=== PATIENT | male | born 1955 | race Caucasian/White ===

== ENCOUNTER 2023-03-10 05:55 | Day surgery (SDC) | payer MEDICARE, OTHER ==
[2023-03-04 10:55] VITALS: BP 163/85
[~2023-03-10] VITALS: Ht 177.8 cm; Wt 84.1 kg
[2023-03-10] VITALS (9 sets, daily range): BP systolic 124–165; BP diastolic 63–83
[~2023-03-10 05:55] MED LIST: BAYER CHEWABLE81 MG PO; FLOMAX0.4 MG PO; JANUVIA100 MG PO; MACRODANTIN100 MG PO; PRAVASTATIN SOD20 MG PO; ZESTRIL40 MG PO
--- NOTE | 2023-03-10 07:23 | NUR ---
LE 0715 UP TO BATHROOM. VOIDED 5ML CLOUDY YELLOW URINE. SAMPLE GIVEN TO LAB. 1500 LR BOLUS INFUSED AND ANESTHESIA AWARE.
--- NOTE | 2023-03-10 07:26 | NUR ---
DS ROUNDS. NO VISIT. SURGICAL STAFF IN WITH PT. PROVIDED PRAYER.
[2023-03-10 07:32] LABS: BILIRUBIN, URINE NEGATIVE (negative); BLOOD/HGB, URINE TRACE-I (Negative); KETONE, URINE NEGATIVE (Negative); LEUK ESTERASE, URINE MODERATE (negative); NITRITE, URINE NEGATIVE (negative)
[2023-03-10 07:37] LABS: BACTERIA, URINE NONE SEEN /hpf (negative); CASTS, URINE NONE SEEN \\lpf; COLLECTION TYPE, URINE CLEAN CATCH; CRYSTALS, URINE NONE SEEN (0-1+); EPITHELIAL CELLS, URINE 0 /lpf (0-1+); REFLEX CULTURE, URINE No (No)
--- NOTE | 2023-03-10 12:01 | NUR ---
PATIENT ARRIVED TO MED SURG, ROOM 115 VIA BED, AT 1145. PATIENT IS SLEEPING SOUNDLY WITH REGULAR RESPIRATIONS AND O2 SATS OF 93%. CBI TURNED OFF UPON PATIENT ARRIVAL AND URINE IS CURRENTLY A PALE YELLOW AND NO CLOTS. BED ALARM IS ON, CALL LIGHT WITHIN REACH. IVF INFUSING LR @ 75 TO RIGHT ARM IV. NEXT VITALS AT 1240.
--- NOTE | 2023-03-10 12:17 | NUR ---
03/10/23 1217 Nicol De Leon 1030 PT TO PACU FROM OR PER BED. ORAL AIRWAY IN PLACE WITH MASK AND O2 AT 10L. CBI INFUSING PER ORDER. URINE CLEAR WITH SLIGHT PINK TINGE. NEWMAN CATHETER IN PLACE. 1035 DR RAMOS AT BEDSIDE. STATES PT HAD INDICATION OF CHRONIC INFLAMMATION OF THE BLADDER AND URETHRA. 1045 ORAL AIRWAY DC'D. 1047 O2 DC'D. PT STIRRING. 1100 PT C/O PAIN TO PENIS 8/10 AND PT C/O "NEED TO PEE". INSTRUCTED PT THAT HE HAS A NEWMAN CATHETER IN PLACE AND THAT IT IS COMMON TO HAVE IRRITIATION AND FEEL THE NEED TO PEE, AND FOR IT TO CAUSE SOME IRRITATION. TOOLROOM KEEPER NOTIFIED OF PT'S PAIN. 1105 TYLENOL IV 1 GRAM GIVEN PER ORDER FROM TOOLROOM KEEPER. PT ALSO C/O L INTERMITTENT SHOULDER PAIN OCCURING WHEN HE LIFTS HIS ARM. 1115 PT DOZING 1123 PT C/O PAIN TO PENIS 7/10, FETANYL GIVEN PER ORDER. 1130 PT RESTING COMFORTABLY AT THIS TIME. RESPIRATIONS EVEN AND UNLABORED. CBI RUNNING PER ORDER, AND NEWMAN CATHETER INTACT. 1144 PT TRANSFERRED TO MS FLOOR PER BED. BED PLUGGED IN ON ARRIVAL. NO COMPLAINTS AT THIS TIME, PT RESTING COMFORTABLY. REPORT GIVEN TO GARTH MURRELL.
--- NOTE | 2023-03-10 13:09 | NUR ---
PATIENT IS SITTING UP TO EAT LUNCH. WARM PACK TO LEFT SHOULDER, HE INDICATES THAT HE HAS CHRONIC SHOULDER PAIN. PATIENT IS OTHERWISE COMFORTABLE. URINE REMAINS CLEAR, LIGHT YELLOW AND CBI HAS REMAINED TURNED OFF.
[2023-03-10] MEDS ORDERED: LEVOFLOXACIN500 MG PO (13:32)
[2023-03-10] MEDS ORDERED: OXYCODONE HCL5 MG PO (13:32)
[2023-03-10] MEDS ORDERED: PYRIDIUM200 MG PO (13:34)
--- NOTE | 2023-03-10 13:47 | NUR ---
THIRD POST OP VITALS COMPLETE. PATIENT IS 99% ON ROOM AIR, IS AWAKE AND ATE 100% OF HIS LUNCH. CBI REMAINS OFF, URINE IS PALE YELLOW WITH A SLIGHT TINGE OF PINK. PATIENT IS SITTING UP TO WATCH TV. LEFT SHOULDER IS STILL UNCOMFORTABLE 3/10 AND 6/10 WITH MOVEMENT.
--- NOTE | 2023-03-10 14:39 | NUR ---
POST UP VITALS COMPLETE. CBI REMAINS OFF AND URINE IS A PALE PINK. PATIENT REMAINS COMFORTABLE AND IS WATCHING TV.
--- NOTE | 2023-03-10 16:00 | NUR ---
CALL LIGHT ANSWERED. PT REQUESTED SCDS TO BE REMOVED. EXPLAINED THE IMPORTANCE OF SCDS AFTER SURGERY. PT STATED, "IT IS NOT WORKING CORRECTLY." NEW MACHINE AND LEG STOCKINGS APPLIED. PT VERBALIZED IT IS WORKING WELL NOW. NO OTHER ASSISTANCE NEEDED AT THIS TIME.
--- NOTE | 2023-03-10 16:25 | NUR ---
PATIENT IS FEELING BETTER, A LITTLE BORED WITH BEING IN BED. URINE IS VERY LIGHT PINK.
--- NOTE | 2023-03-10 17:04 | NUR ---
PATIENT GIVEN 5 UNITS OF INSULIN TO RIGHT ARM FOR BG OF 157.
--- NOTE | 2023-03-10 17:50 | NUR ---
MED REC COMPLETE
--- NOTE | 2023-03-10 18:04 | NUR ---
PATIENT SITTING UP IN BED WATCHING TV. VITALS AND I&O'S CHARTED. CALL LIGHT IN REACH. NO FURTHER NEEDS AT THIS TIME.
--- NOTE | 2023-03-10 20:11 | NUR ---
Pt irritaed, loud, angry over kitchen being closed and he is unable to order. and he was told that he could order food anytime he wanted to order. wanted icecream and chocolate, instructed that he could not have it as he is on a diabetic diet. got very loud and angry. "You can not tell me what to do with my diabetes, I know what to do". "I want my blood sugars taken, they are high," instructed that I was on my caro to do a 2000 blood sugar and i would return as he is to get BS at 2100, but I will go and do my other pt first and then come back. Not receptive to instructions. Upset over RN assessing CBI/f/c, noted some pinkish colored urine in tubing and tried to open up the CBI drainage. got very upset, "What are you doing, my other nurse turned off, why are you turning it on". it was explained to him, not receptive. very angry, loud, not receptive to teaching/instructions. Charge nurse notified.
--- NOTE | 2023-03-10 20:30 | NUR ---
NOTIFIED BY PT'S PRIMARY RN THAT PT IS UPSET REGARDING DIET AND MEDICATION. PERFORATOR LOADER TO ROOM. PT INQUIRING ABOUT INSULIN, PAIN MEDICATION, WHEN THE MD WILL SEE HIM, ETC. PT RAISING HIS VOICE, WAVING HIS ARMS. PERFORATOR LOADER ATTEMPTS EDUCATION REGARDING DIET, ACCUCHECK, INSULIN, AND PAIN MEDICATION. PT STATES THAT HE JUST WANTS TO LEAVE, REACHING TO TAKE IV OUT. PERFORATOR LOADER ENCOURAGED PT TO LEAVE IV. PERFORATOR LOADER INFORMS PT MD WILL BE CALLED TO SEE WHAT MD RECOMMENDS. PT STATES AGREEMENT. COTTON PICKING MACHINE OPERATOR ALSO NOTIFIED. MD NOTIFIED, NO NEW ORDERS RECEIVED.
--- NOTE | 2023-03-10 20:40 | NUR ---
POUNCING MACHINE OPERATOR TO ROOM, INFORMS PT THAT MD WOULD LIKE HIM TO STAY AND RECEIVE MORNING MEDCIATION, AND THAT SHE WOULD LIKE TO SEE HIM IN THE MORNING. PT RAISES HIS VOICE AGAIN STATING "YOU TOLD ME I COULD TALK TO MY DOCTOR AND YOU ARE A LIAR!" PT INFORMED THAT POUNCING MACHINE OPERATOR BROUGHT INSULIN AND PAIN MEDICATION. PT AGREEABLE TO TAKE MEDICATIONS. PT BECOMES APOLOGETIC, STATES THAT HE IS JUST ANGRY BECAUSE HIS BLOOD SUGAR IS ELEVATED. PT REQUESTS ANOTHER ACCUCHECK, PERFORMED. PT STATES HE WOULD LIKE ANOTHER ACCUCHECK IN 30 MINS, POUNCING MACHINE OPERATOR AGREES. PT WOULD KIRSTIN TO SHAVE HIS FACE. ALL SUPPLIES TO SHAVE FACE, PROVIDED. PT DENIES FURTHER NEEDS AT THIS TIME. CRAYON GRADER REMAINS IN ROOM.
--- NOTE | 2023-03-10 20:54 | NUR ---
PT. VITALS AND I/OS CHARTED ACCORDINGLY. ROOM TIDIED. FRESH WATER PROVIDED, CALL LIGHT LEFT WITHIN REACH. NO OTHER NEEDS AT THIS TIME.
--- NOTE | 2023-03-10 21:30 | NUR ---
PATIENT STATED "IM HUNGRY, I NEED SOMETHING TO EAT". THIS TRAINING PROGRAM MANAGER TOLD PATIENT THAT TURKEY SANDWICH BOX IS AVAILABLE. PATIENT STATED OKAY WITH 2 MAYONNAISE AND NO MUSTARD. PATIENT GOT IRRITATED WHEN HE SAW "LIGHT SCHUMACHER". PATIENT STATED "I WANT REGULAR SCHUMACHER". THIS TRAINING PROGRAM MANAGER TOLD THAT LIGHT SCHUMACHER IS THE ONLY AVAILABLE. PATIENT ATE THE SANDWICH. DENIES FURTHER NEEDS AT THIS TIME.
--- NOTE | 2023-03-10 21:43 | NUR ---
calmer, eating, wanted to have his BS rechecked, done by PHLEBOTOMIST SUPERVISOR/INSTRUCTOR 214,, was 261 earlier and was medicated with SS. Started getting very loud when told about Zestril that was ordered earlier. "I was told not to take them prior to having my surgery, I did not took them, I already took it after I got here because my surgery is done". charge nurse notified. cooperativ with lungs nad heart assessment, unable to do lower body assessment. "Samson eating right now". IVF infusing. will come back an dask again, reassured and calmed down
--- NOTE | 2023-03-11 00:11 | NUR ---
RESATING, EYES CLOSED, NO S/SX DISTRESS, F/C PATENT, PINKISH URINE IN TUBING
--- NOTE | 2023-03-11 03:15 | NUR ---
pt was resting, eyes closed, HOB, no resp distress. woke pt up and notify him of need to do vital signs. woke up screaming "why do you need to wake me up at this hour, I need to sleep, I dont need vitals they took them earlier". not receptive, "NO, I do not need you to take my bp". pt declined vitals. ressured and went back to sleep. IVF infusing, site intact. f/c draining QS oswald colored urine. Charge nurse notified
--- NOTE | 2023-03-11 04:15 | NUR ---
HOB elevated, calm, quiet, eyes closed, IVF infusing, f/c patent. Will try to complete assessment and vitals when awake, no s/sx distress at this time
--- NOTE | 2023-03-11 06:05 | NUR ---
PT RESTING, HOB ELEVATED, EYES CLOSED NO DISTRESS, WOEKN UP AND ASKED IF THIS RN AND MIDDLE SCHOOL TUTOR COULD DO THIS AM'S VITALS. "WHY, NO, AND TWICE NO". F/C PATENT TO CLAMPED. SENG TEA COLORED URINE. IVF INFUSING. CHARGE NURSE NOTIFIED
--- NOTE | 2023-03-11 07:15 | NUR ---
REPORT RECEIVED FROM SUPERVISOR GLYCERIN RN JOSÉ MIGUEL. PATIENT IS RESTING ON THEIR RIGHT SIDE WITH EYES CLOSED. RESPIRATIONS ARE EVEN AND UNLABORED. PATIENT ON ROOM AIR. CALL LIGHT AND PERSONAL BELONGINGS ARE WITHIN REACH.
[2023-03-11] MEDS ORDERED: COLACE100 MG PO (07:56)
--- NOTE | 2023-03-11 09:45 | NUR ---
PATIENT FULL ASSESSMENT COMPLETE AND DOCUMENTED IN THE CHART. MORNING MEDICATIONS ADMINISTERED PER THE EMAR. FULL ASSESSMENT BENIGN. NEWMAN CATHETER IN PLACE. THREE WAY CATHETER INLET PORT CAPPED. PATIENT DAYTON CARE COMPLETE. PATIENT EDUCATED ON HOW TO CARE FOR THE CATHETER AT HOME. DICHARGE INSTRUCTIONS AND EDUCATION ON TURP AND CATHETER REVIEWED WITH THE PATIENT. PATIENT STATED NO QUESTIONS OR CONCERNS AT THIS TIME. PATIENT SITTING UPRIGHT IN BED AND EATING BREAKFAST. PATIENT STATED NO FURTHER NEEDS AT THIS TIME. CALL LIGHT AND PERSONAL BELONGINGS ARE WITHIN REACH.
--- NOTE | 2023-03-11 10:25 | NUR ---
SPOKE WITH MANAGEMENT IN REGARDS TO WHEN PATIENT CAN DRIVE AFTER TAKING NARCOTICS. YESIKA PATIENT EDUCATION STATES TO NOT DRIVE FOR 8 HOURS AFTER TAKING NARCOTICS. PATIENT GIVEN THE EDUCATION. PATIENT NOT DISPLAYING ANY SIGNS OF TOXICITY. PATIENT LAST GIVEN NARCOTIC AROUND 1999 LAST NIGHT.
[2023-03-11 15:40] LABS: CALCULI MASS 179 mg (())
--- NOTE | 2023-03-11 18:43 | OR ---
[facility] [address] [place], [place] [address] Signed DATE OF OPERATION: 03/10/2023 SURGEON: Khang Ramos MD PREOPERATIVE DIAGNOSES: 1. 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 2. Recurrent urinary tract infection. 3. Large 1.5 cm bladder calculi x2. 4. Chronic cystourethritis. POSTOPERATIVE DIAGNOSES: 1. 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 2. Recurrent urinary tract infection. 3. Large 1.5 cm bladder calculi x2. 4. Chronic cystourethritis. NAMES OF PROCEDURES: 1. Urethral dilation using Harmon sounds from 18-Citizen [place] to 28-Citizen [place]. 2. Transurethral resection of the prostate. 3. Cystolitholapaxy, AKA cystoscopy with laser fragmentation of large bladder calculi with irrigation of stone fragments from the bladder. ANESTHESIA: General. ESTIMATED BLOOD LOSS: 20 mL. COMPLICATIONS: None. SPECIMENS: 1. Fragments of bladder calculi sent to the lab for stone analysis. 2. Prostate chips sent to pathology for evaluation. DRAINS: A 22-Citizen [place] three-way Kennedy catheter, connected to continuous bladder irrigation. Electronically Signed By: KHANG RAMOS MD 03/11/23 1843 PATIENT NAME: DJ HUMPHREYS OPERATIVE REPORT DATE OF : 55 REPORT #: [id number] PHYSICIAN: KHANG RAOMS MD PCP: NO PRIMARY CARE PHYSICIAN REPORT IS CONFIDENTIAL AND NOT TO BE RELEASED WITHOUT AUTHORIZATION [facility] [address] [place], [place] [address] Signed INDICATIONS FOR PROCEDURE: Mr. Humphreys is a very pleasant 67-year-old gentleman, who I have known for a little while now. He presented to me years ago with complaints of dysuria, urgency and frequency symptoms and underwent a cystoscopy at that time, which resulted in a diagnosis of cystourethritis. He presented to me again years later with similar symptoms along with associated incomplete bladder emptying. He recently underwent a diagnostic cystoscopy, which revealed moderate bilobar lateral lobe hypertrophy along with an elevated bladder neck. He was also found to have two large pancake shaped 1.5 cm bladder calculi at the base of the bladder. After discussion of the risks and benefits of the procedure, the patient elected to undergo cystolitholapaxy along with transurethral resection of the prostate. OPERATIVE FINDINGS: 1. Digital rectal examination reveals a 40 g prostate that is soft, smooth and symmetric with no focal nodules. 2. Cystourethroscopy reveals irritation of both the urethra and the entire bladder wall. There are otherwise no suspicious lesions or plaques on the bladder wall. Again noted are two large 1.5-1.7 cm bladder calculi totaling at least 3 cm of bladder stone burden. 3. The two large bladder calculi were fragmented using a 1000 micron fiber and 1.5 joules and 8 hertz of energy. The stones fragmented somewhat easily and I was able to irrigate all of the stone burden out of the patient's bladder prior to performing the TURP. 4. The patient's bilobar prostate was resected in the standard fashion using a 24-Citizen [place] bipolar loop. I started the resection at the level of the bladder neck both anteriorly and posteriorly. I then moved to resection within the left lateral lobe and the right lateral lobe of the prostate. The entire resection was made down to the level of verumontanum as per standard of care. I evaluated the ureteral orifices before and after resection and they remain in their normal anatomic location and without any evidence of iatrogenic damage. 5. At the end of the procedure, a 22-Citizen [place] three-way Kennedy catheter was inserted into the patient's bladder and connected to continuous bladder irrigation. DESCRIPTION OF PROCEDURE: After informed consent was obtained, the patient was taken back to the operating room. He was transferred from the [facility] to the operating room table, where general anesthesia was induced. He was placed in the dorsal lithotomy position and his genitalia were prepped and draped in a standard sterile fashion. Using a 30-degree lens on a 22-Citizen [place] introducer, a rigid cystoscope was inserted through his urethra and his bladder under direct visualization. Diagnostic cystourethroscopy was then performed. Please see above findings. I then switched to a 15 degree lens and passed a 1000 micron fiber through the cystoscope and into the patient's bladder. Laser lithotripsy of the two large bladder stones was then performed. I fragmented the stones down well enough so Electronically Signed By: KHANG RAMOS MD 03/11/23 1843 PATIENT NAME: JD HUMPHREYS OPERATIVE REPORT DATE OF : 55 REPORT #: [id number] PHYSICIAN: KHANG RAMOS MD PCP: NO PRIMARY CARE PHYSICIAN REPORT IS CONFIDENTIAL AND NOT TO BE RELEASED WITHOUT AUTHORIZATION [facility] [address] [place] [id number] Signed that they could be irrigated via the 22.5-Citizen [place] sheath. Once the stones were fully fragmented, I irrigated the bladder with a Vasiliy syringe and was able to get 98% of the stone burden at that time. The remainder of the stone burden was irrigated out at the time of the TUR. Once 100% of the stone fragments were removed from the patient's bladder, I then again evaluated the bilateral ureteral orifices and the relationship to the bladder neck. I deemed it was safe to fully resect the bladder neck. I then removed the 22.5-Citizen [place] sheath and dilated the patient's fossa navicularis from 18-Citizen [place] to 28-Citizen [place] using Dotty sounds without difficulty. I then instilled 60 mL of sterile lubrication into the patient's urethra. I then passed this 26-Citizen [place] sheath into the patient's bladder using a visual obturator. I removed the visual obturator and then inserted the bipolar loop and then began my resection of the TURP. The posterior and anterior bladder neck were resected 1st, then followed by the left and then right lobes of the prostate down to the level of the verumontanum. Once I had removed the majority of the tissue using the loop, I switched to the bipolar button to continue hemostasis and to flatten out the new TUR defect. Throughout the this portion of procedure, I irrigated the patient's bladder using a Vasiliy syringe multiple times to extract all the prostate chips from the patient's bladder. By the end of the procedure, hemostasis had been achieved and there was a very good TUR defect now seen in the prostatic urethra. I removed the resectoscope leaving the sheath behind. I passed a 0.035 Sensor wire through the sheath and into the patient's bladder. The sheath was then removed. I then passed a 22-Citizen [place] three-way Kennedy catheter over the wire and into the patient's bladder without difficulty. I pulled the wire and then placed 30 mL of water into the Kennedy balloon. The patient's three-way catheter was then manually irrigated to confirm placement. His catheter was then connected to continuous bladder irrigation. A digital rectal examination was then performed. Please see the above findings. The procedure was then terminated. The patient tolerated the procedure well without any complication. He will now be transferred to the postanesthesia care unit in stable condition. DISPOSITION: I will see the patient later today to discuss the details of today's procedure. He will be admitted as an extended recovery this evening to continue with his continuous bladder irrigation. This will be weaned slowly to keep his urine clear to light pink in color. He will also be given antiemetics and pain control as needed. His diabetic diet will be restarted after surgery. He will stay the night and CBI will be slowly weaned off. I anticipate that he will be discharged to home with his Kennedy catheter to gravity drainage tomorrow once he receives his IV Rocephin. He has been sent home with oxycodone 5 mg 1 to 2 tablets p.o. q.4 to 6 hours p.r.n. pain, dispense #30, along with a prescription for Pyridium and Levaquin 500 mg one tablet p.o. daily for a total of 10 days. Electronically Signed By: KHANG RAMOS MD 03/11/23 1843 PATIENT NAME: JD HUMPHREYS OPERATIVE REPORT DATE OF : 55 REPORT #: [id number] PHYSICIAN: KHANG RAMOS MD PCP: NO PRIMARY CARE PHYSICIAN REPORT IS CONFIDENTIAL AND NOT TO BE RELEASED WITHOUT AUTHORIZATION [address] [address] Signed MD TIFFANI Vance/MODL /[id number] Copies: ~ Electronically Signed By: KHANG RAMOS MD 03/11/23 1843 PATIENT NAME: JD HUMPHREYS OPERATIVE REPORT DATE OF : 55 REPORT #: [id number] PHYSICIAN: KHANG RAMOS MD PCP: NO PRIMARY CARE PHYSICIAN REPORT IS CONFIDENTIAL AND NOT TO BE RELEASED WITHOUT AUTHORIZATION
--- NOTE | 2023-03-13 15:34 | PATH ---
[facility] [address] [place], [place] [address] Signed SPECIMEN(S): A PROSTATE CHIPS SPECIMEN SOURCE: A. PROSTATE CHIPS CLINICAL HISTORY: Benign prostatic hyperplasia. FINAL PATHOLOGIC DIAGNOSIS: Prostate chips, TUR: - Benign prostatic glandular tissue with stromal hyperplasia and benign glandular epithelium. - Chronic stromal and glandular inflammation. - Benign urothelium. JVR:michael MICROSCOPIC EXAMINATION: Histologic sections of all submitted blocks are examined by light microscopy. These findings, together with the gross examination, support the pathologic diagnosis. GROSS DESCRIPTION: The specimen, labeled and designated "JuliannJustin," and designated on the requisition "prostate chips," is received in formalin is a 8-gram, 5.5 x 4.6 x 1.3 cm aggregate of pink-sanchez to dodge rubbery soft tissue. The specimen is entirely submitted in (A1-A6). FB (under the direct supervision of a pathologist) The Gross Description was prepared using a voice recognition system. The report was reviewed for accuracy; however, sound-alike word errors, addition and/or deletions may occur. If there is any question about this report, please contact Client Services. PERFORMING LABORATORY: Technical component was performed by [facility], [address] [place] [id number] (CLIA# [id number]). Professional interpretation was performed by [facility], [address] [place] [id number] (CLIA#: [id number]). Diagnostician: Jesse Cornell MD Pathologist Electronically Signed 03/13/2023 PATIENT NAME: JD [facility] DATE OF : 55 REPORT #: [id number] PHYSICIAN: [facility] PCP: NO PRIMARY CARE PHYSICIAN REPORT IS CONFIDENTIAL AND NOT TO BE RELEASED WITHOUT AUTHORIZATION [address] [place] [address] Signed Copies: ~ PATIENT NAME: JD [facility] DATE OF : 55 REPORT #: [id number] PHYSICIAN: [facility] PCP: NO PRIMARY CARE PHYSICIAN REPORT IS CONFIDENTIAL AND NOT TO BE RELEASED WITHOUT AUTHORIZATION
== END 2023-03-11 11:59 | disposition home or self-care (01) ==
LOC: DS 05:55 → MS 11:45 → DS 03-11 11:59
PROVIDERS: ATTEND Urology
PROC: 0VB08ZZ Excision of Prostate, Via Natural or Artificial Opening Endoscopic (ICD-10-PCS; principal; 2023-03-10 07:30)
PROC: 0TCB8ZZ Extirpation of Matter from Bladder, Via Natural or Artificial Opening Endoscopic (ICD-10-PCS; 2023-03-10 07:30)
DX: N40.1 Benign prostatic hyperplasia with lower urinary tract symptoms (principal); K80.20 Calculus of gallbladder without cholecystitis without obstruction; N34.2 Other urethritis
CPT/HCPCS: 00914; 51700; 81001; 82365; 88305; C1769; J0131; J0696; J1100; J1160; J1815; J1885; J2250; J2405; J2704; J2765; J3010; J7121